=== PATIENT | male | born 1965 | race Hispanic/Latino ===

== ENCOUNTER → 2021-08-20 | Day surgery (SDC) | payer BC ==
[~2021-08-20] MED LIST: ATORVASTATIN CA20 MG PO; BYSTOLIC5 MG PO; LIDOCAINE HCL 2% LOCAL INJ 5 ML SDV VIAL INJ ONE; MELOXICAM7.5 MG PO; PROPOFOL IV EMULSION 10 MG/ML 20 ML VIAL ONE; SYNTHROID50 MCG PO; SYNTHROID75 MCG PO; ZETIA10 MG PO
[2021-08-20 08:26] VITALS: BP 106/71
== END | disposition home or self-care (01) ==
LOC: OR 06:00
PROVIDERS: ATTEND Internal Medicine Gastroenterology
DX: Z09 Encounter for follow-up examination after completed treatment for conditions other than malignant neoplasm (principal); Z86.010 Personal history of colon polyps; K64.8 Other hemorrhoids; Z71.3 Dietary counseling and surveillance; E66.9 Obesity, unspecified; I10 Essential (primary) hypertension; E03.9 Hypothyroidism, unspecified; E78.00 Pure hypercholesterolemia, unspecified; Z88.3 Allergy status to other anti-infective agents; Z91.041 Radiographic dye allergy status; Z68.31 Body mass index [BMI] 31.0-31.9, adult
CPT/HCPCS: 45378; 93005; J2001; J2704; U0002